=== PATIENT | male | born 1970 ===

== ENCOUNTER 2022-04-01 07:08 | Day surgery (SDC) | payer OTHER ==
[~2022-04-01] VITALS: Ht 170.2 cm; Wt 77.1 kg
[2022-04-01] MEDS ORDERED: PERCOCET 5-3251 EACH PO (13:39)
== END 2022-04-01 16:00 | disposition home or self-care (01) ==
LOC: CIR.AMB 07:08
PROVIDERS: ATTEND Surgery
DX: K81.1 Chronic cholecystitis (principal); R10.11 Right upper quadrant pain